=== PATIENT | male | born 1960 | race Caucasian/White ===

== ENCOUNTER 2019-04-27 13:00 | Outpatient (RCR) | payer OTHER | END 2019-04-27 13:30 | disposition still patient (30) | LOC: PT 13:00 | DX: M48.061 Spinal stenosis, lumbar region without neurogenic claudication (principal) ==

== ENCOUNTER → 2020-11-29 | Outpatient (CLI) | payer BC | LOC: RAD 18:30 | DX: M25.562 Pain in left knee (principal); M79.89 Other specified soft tissue disorders ==

== ENCOUNTER → 2025-01-27 | Outpatient (CLI) | payer MEDICARE | LOC: RAD 08:21 | DX: R10.31 Right lower quadrant pain (principal) ==